=== PATIENT | female | born 1990 | race Caucasian/White ===

== ENCOUNTER 2017-02-09 15:41 | Emergency (ER) | payer MEDICAID ==
--- NOTE | 2017-02-09 17:39 | C.PDOC ---
History Of Present Illness 27 y.o female c/o itching to scalp and rash along hairline with itching after using a hair dye yesterday. pt c/o itching and discomfort. pt reports similar reaction with a different hair dye last year, did not do patch test with this one. no difficulty breathing or swallowing. Time Seen by Provider: 02/09/17 16:48 Chief Complaint (Nursing): Allergic Reaction History Per: Patient Onset/Duration Of Symptoms: Days (1) Current Symptoms Are (Timing): Still Present Context: Other (hair dye) Associated Symptoms: Skin Rash, Itching, Redness. denies: Dyspnea, Trouble Swallowing Past Medical History Reviewed: Historical Data, Nursing Documentation, Vital Signs Vital Signs: Last Vital Signs Temp 97.9 F 02/09/17 18:01 Pulse 88 02/09/17 18:01 Resp 20 02/09/17 18:01 BP 122/69 02/09/17 18:01 Pulse Ox 98 02/09/17 18:01 - Medical History PMH: No Chronic Diseases Family History: States: Unknown Family Hx - Social History Hx Alcohol Use: No Hx Substance Use: No - Immunization History Hx Tetanus Toxoid Vaccination: No Hx Influenza Vaccination: No Hx Pneumococcal Vaccination: No Review Of Systems Constitutional: Negative for: Fever, Chills ENT: Negative for: Mouth Swelling, Throat Pain, Throat Swelling Respiratory: Negative for: Shortness of Breath Skin: Positive for: Rash (along hairline) Physical Exam - Physical Exam Appears: Non-toxic, No Acute Distress Skin: Warm, Dry, Rash (erythematous base with fine papules along hairline with minimal swelling) Oral Mucosa: Moist Tongue: No Swelling Lips: No Swelling ED Course And Treatment O2 Sat by Pulse Oximetry: 100 Medical Decision Making Medical Decision Making: will d/c pt with prednisone and hydroxyzine. f/u with med clinic Disposition Counseled Patient/Family Regarding: Studies Performed, Diagnosis, Need For Followup, Rx Given - Disposition Referrals: [facility] [Outside] Disposition: HOME/ ROUTINE Disposition Time: 17:51 Condition: STABLE Additional Instructions: Do not use any more hair dye please without a patch test. Take prednisone and hydroxyzine as prescribed; the hydroxyzine makes you sleepy, do not drive or operate machinery while taking this. Follow up in medical clinic in 1-2 days. Return to ER for any worsening symptoms. Prescriptions: Hydroxyzine HCl 25 mg PO TID #20 tablet predniSONE [predniSONE Tab] 2 tab PO DAILY #8 tab Instructions: Contact Dermatitis (ED), General Allergic Reaction (ED) Forms: [facility] (Fijian), General Discharge Instructions - Clinical Impression Clinical Impression: Contact dermatitis, Allergic reaction to chemical substance
[2017-02-09 18:02] VITALS: BP 122/69; PULSE 88; RESP 20; TEMP 97.9
[2017-02-11 11:19] VITALS: O2SAT 100
== END 2017-02-09 18:05 | disposition home or self-care (01) ==
LOC: C.ER 15:41
DX: L25.9 Unspecified contact dermatitis, unspecified cause (principal); T78.49XA Other allergy, initial encounter; X58.XXXA Exposure to other specified factors, initial encounter

== ENCOUNTER 2018-04-26 14:23 | Emergency (ER) | payer MEDICAID ==
[2018-04-26 14:36] VITALS: BP 132/89; PULSE 98; RESP 20; TEMP 98.8; O2SAT 99
--- NOTE | 2018-04-26 15:43 | C.PDOC ---
History Of Present Illness 28 year old female presents to the ED complaining of irritation and discomfort to bilateral eyebrows. Reports she used a hair dye on her eyebrows. She was seen by PMD who gave her "steroid shot" but complains discomfort persists. Time Seen by Provider: 04/26/18 15:04 Chief Complaint (Nursing): Allergic Reaction History Per: Patient History/Exam Limitations: no limitations Onset/Duration Of Symptoms: Days Current Symptoms Are (Timing): Still Present Past Medical History Reviewed: Historical Data, Nursing Documentation, Vital Signs Vital Signs: Last Vital Signs Temp 98.8 F 04/26/18 14:28 Pulse 98 H 04/26/18 14:28 Resp 20 04/26/18 14:28 BP 132/89 04/26/18 14:28 Pulse Ox 99 04/26/18 14:28 - Medical History PMH: No Chronic Diseases Surgical History: No Surg Hx Family History: States: No Known Family Hx - Social History Hx Alcohol Use: No Hx Substance Use: No - Immunization History Hx Tetanus Toxoid Vaccination: No Hx Influenza Vaccination: No Hx Pneumococcal Vaccination: No Review Of Systems Except As Marked, All Systems Reviewed And Found Negative. Constitutional: Negative for: Fever, Chills Skin: Positive for: Other (erythema and pruritis to b/l eyebrows) Physical Exam - Physical Exam Appears: Non-toxic, No Acute Distress Skin: Warm, Dry, Other (erythema and pruritis to b/l eyebrows, (-) swelling (-) scaling ) Head: Normacephalic Eye(s): bilateral: Normal Inspection Oral Mucosa: Moist Neck: Supple Chest: Symmetrical Extremity: Bilateral: Atraumatic, Normal Color And Temperature, Normal ROM Neurological/Psych: Oriented x3, Normal Speech Gait: Steady ED Course And Treatment O2 Sat by Pulse Oximetry: 99 (RA) Pulse Ox Interpretation: Normal Progress Note: Patient was seen previously in the ED for same presentation. Advised to use another hair dye. Given Rx for Atarax and predniSONE. Disposition - Disposition Disposition: HOME/ ROUTINE Disposition Time: 15:48 Condition: STABLE Additional Instructions: Follow up with your PMD within 2-3 days. Return to ED if feel worse. Prescriptions: hydrOXYzine HCl [Atarax] 25 mg PO Q6H #30 tab predniSONE [predniSONE Tab] 2 tab PO DAILY #8 tab Instructions: Contact Dermatitis (DC) Forms: [facility] (Icelandic) - Clinical Impression Clinical Impression: Contact dermatitis - PA / [employer] SAMPLER / Resident Statement MD/DO has reviewed & agrees with the documentation as recorded. - Scribe Statement The provider has reviewed the documentation as recorded by the Scribe Aurelia Alva All medical record entries made by the Scribe were at my direction and personally dictated by me. I have reviewed the chart and agree that the record accurately reflects my personal performance of the history, physical exam, medical decision making, and the department course for this patient. I have also personally directed, reviewed, and agree with the discharge instructions and disposition.
== END 2018-04-26 16:00 | disposition home or self-care (01) ==
LOC: C.ER 14:23
DX: L25.9 Unspecified contact dermatitis, unspecified cause (principal)